=== PATIENT | male | born 1985 | race Caucasian/White ===

== ENCOUNTER 2020-08-11 02:26 | Emergency (ER) | payer MEDICAID ==
[~2020-08-11] VITALS: Ht 165.1 cm; Wt 131.0 kg
[2020-08-11] MEDS ORDERED: KETOROLAC 30MG/ML VIAL IV ONE (03:30)
[2020-08-11 03:43] LABS: BASOPHILS % 2.8 % (0.0-2.0); EOSINOPHILS % 4.3 % (0.0-5.0); HEMATOCRIT. 41.8 % (42.0-52.0); HEMOGLOBIN. 14.1 g/dL (14.0-18.0); LYMPHOCYTES % 37.9 % (20.0-50.0); MEAN CORPUSCULAR HEMOGLOBIN 28.6 pg (28.0-32.0); MEAN CORPUSCULAR VOLUME 84.6 fL (80.0-94.0); MEAN PLATELET VOLUME 7.8 fl (7.4-10.4); MONOCYTES % 10.1 % (2.0-8.0); NEUTROPHILS % 44.9 % (40.0-76.0); PLATELET 346 x1000/uL (130-400); RED BLOOD CELL COUNT 4.94 mill/uL (4.7-6.1); RED CELL DISTRIBUTION WIDTH 15.1 % (11.6-14.6)
[2020-08-11 03:53] LABS: CHLORIDE 105 mEq/L (98-107)
[2020-08-11] MEDS ORDERED: TOPUD PO (04:14)
[2020-08-11 04:49] VITALS: BP 139/97
== END 2020-08-11 04:53 | disposition home or self-care (01) ==
LOC: ER 02:26
DX: R07.89 Other chest pain (principal); Z98.890 Other specified postprocedural states
CPT/HCPCS: 36415; 71045; 80053; 83880; 84484; 85025; 93005; 99285

== ENCOUNTER 2020-11-27 04:34 | Inpatient (IN) | payer MEDICAID, OTHER ==
[~2020-11-27] VITALS: Ht 167.6 cm; Wt 128.4 kg
[~2020-11-27 04:34] MED LIST: TOPUD PO
[2020-11-27 05:22] LABS: BASOPHILS % 2.8 % (0.0-2.0); EOSINOPHILS % 5.1 % (0.0-5.0); HEMATOCRIT. 42.7 % (42.0-52.0); HEMOGLOBIN. 14.6 g/dL (14.0-18.0); MEAN CORPUSCULAR HEMOGLOBIN 29.1 pg (28.0-32.0); MEAN CORPUSCULAR VOLUME 85.1 fL (80.0-94.0); MEAN PLATELET VOLUME 7.6 fl (7.4-10.4); MONOCYTES % 10.1 % (2.0-8.0); PLATELET 354 x1000/uL (130-400); RED BLOOD CELL COUNT 5.02 mill/uL (4.7-6.1); RED CELL DISTRIBUTION WIDTH 15.2 % (11.6-14.6)
[2020-11-27 05:23] LABS: CHLORIDE 105 mEq/L (98-107)
[2020-11-27 05:31] LABS: LDL CHOLESTEROL 111 mg/dL (5-100)
[2020-11-27 05:32] LABS: HDL CHOLESTEROL 39 mg/dL (40-59)
[2020-11-27] MEDS ORDERED: ASPIRIN 325MG TABLET PO ONE (06:30)
[2020-11-27 07:52] LABS: *AMPHETAMINES SCREEN URINE NEGATIVE (NEGATIVE); *BARBITURATES SCREEN URINE NEGATIVE (NEGATIVE); *BENZODIAZEPINES SCREEN URINE NEGATIVE (NEGATIVE); *COCAINE SCREEN URINE NEGATIVE (NEGATIVE)
[2020-11-27 07:53] LABS: CANNABINOID URINE SCREEN NEGATIVE (NEGATIVE); METHADONE URINE SCREEN NEGATIVE (NEGATIVE); OPIATES URINE SCREEN NEGATIVE (NEGATIVE); PHENCYCLIDINE URINE SCREEN NEGATIVE (NEGATIVE)
[2020-11-27] MEDS ORDERED: ONDANSETRON HCL 4MG/2ML INJ IV PRN (08:45)
[2020-11-27] MEDS ORDERED: CLONIDINE 0.1MG TABLET PO PRN (08:45)
[2020-11-27] MEDS ORDERED: DIPHENHYDRAMINE 50MG/ML VIAL IV PRN (08:45)
[2020-11-27 15:56] VITALS: BP 133/87
[2020-11-27 16:00] VITALS: BP 127/92
[2020-11-27 20:00] VITALS: BP 127/86
[2020-11-28] VITALS: BP 132/79
[2020-11-28 04:00] VITALS: BP 121/70
[2020-11-28 06:19] LABS: BASOPHILS % 2.6 % (0.0-2.0); EOSINOPHILS % 4.8 % (0.0-5.0); HEMATOCRIT. 42.4 % (42.0-52.0); LYMPHOCYTES % 33.8 % (20.0-50.0); MEAN CORPUSCULAR HEMOGLOBIN 28.3 pg (28.0-32.0); MEAN CORPUSCULAR VOLUME 85.9 fL (80.0-94.0); MONOCYTES % 9.1 % (2.0-8.0); NEUTROPHILS % 49.7 % (40.0-76.0); PLATELET 349 x1000/uL (130-400); RED BLOOD CELL COUNT 4.94 mill/uL (4.7-6.1); RED CELL DISTRIBUTION WIDTH 15.3 % (11.6-14.6)
[2020-11-28 06:31] LABS: CHLORIDE 108 mEq/L (98-107)
[2020-11-28 06:40] LABS: LDL CHOLESTEROL 112 mg/dL (5-100)
[2020-11-28 06:41] LABS: HDL CHOLESTEROL 35 mg/dL (40-59)
[2020-11-28 08:00] VITALS: BP 122/78
[2020-11-28 14:41] VITALS: BP 131/82
== END 2020-11-28 15:10 | disposition home or self-care (01) | DRG 199 ==
LOC: ER 04:34 → MICUSO 06:37 → 7EST 13:24
PROVIDERS: ADMIT Internal Medicine; ATTEND Internal Medicine
DX: I10 Essential (primary) hypertension (principal); E66.9 Obesity, unspecified; R20.0 Anesthesia of skin; Z82.49 Family history of ischemic heart disease and other diseases of the circulatory system; Z83.3 Family history of diabetes mellitus; Z68.42 Body mass index [BMI] 45.0-49.9, adult
CPT/HCPCS: 36415; 70551; 71045; 80053; 80061; 80305; 85025; 93005; 93970; 99285

== ENCOUNTER 2021-08-17 16:58 | Emergency (ER) | payer MEDICAID, OTHER ==
[~2021-08-17] VITALS: Ht 165.1 cm; Wt 133.0 kg
[2021-08-18] MEDS ORDERED: IBUPROFEN 600MG TABLET PO ONE (00:30)
[2021-08-18] MEDS ORDERED: NIRM1TAB PO (00:54)
[2021-08-18] MEDS ORDERED: IBUP-2029 MT (00:54)
[2021-08-18 01:00] VITALS: BP 139/57
== END 2021-08-18 01:19 | disposition home or self-care (01) ==
LOC: ER 16:58
DX: U07.1 COVID-19 (principal); R53.83 Other fatigue; R00.0 Tachycardia, unspecified; R03.0 Elevated blood-pressure reading, without diagnosis of hypertension; R73.03 Prediabetes
CPT/HCPCS: 93005; 99283

== ENCOUNTER 2023-07-14 07:39 | Emergency (ER) | payer MEDICAID, OTHER ==
[~2023-07-14] VITALS: Ht 167.6 cm; Wt 131.1 kg
[~2023-07-14 07:39] MED LIST changes: +IBUP-2029 MT; +NIRM1TAB PO
[2023-07-14 08:05] VITALS: O2SAT 97
[2023-07-14] MEDS ORDERED: CYCL10TA21 MT (09:33)
[2023-07-14] MEDS ORDERED: DEX6 MT (09:33)
[2023-07-14 09:51] VITALS: BP 138/74; PULSE 74; RESP 18; TEMP 98.2
== END 2023-07-14 09:51 | disposition home or self-care (01) ==
LOC: ER 07:39
DX: M54.41 Lumbago with sciatica, right side (principal)
CPT/HCPCS: 99283

== ENCOUNTER 2024-12-04 21:37 | Emergency (ER) | payer MEDICAID ==
[~2024-12-04] VITALS: Ht 167.6 cm; Wt 130.0 kg
[~2024-12-04 21:37] MED LIST changes: +CYCL10TA21 MT; +DEX6 MT; +IBUP-1455 MT; -IBUP-2029 MT
[2024-12-04 21:45] VITALS: TEMP 36.9; O2SAT 96
[2024-12-04] MEDS: ACETAMINOPHEN 325MG TABLET PO ONE (23:11)
[2024-12-05 00:22] LABS: HEPATITIS A AB IGM NEGATIVE (Negative); HEPATITIS B CORE AB IGM NEGATIVE (Negative)
[2024-12-05 00:23] LABS: HEPATITIS C AB NON REACTIVE (Neg) (Negative)
[2024-12-05] MEDS ORDERED: BO1 TP (00:46)
[2024-12-05] MEDS ORDERED: ACET-3800 MT (00:46)
[2024-12-05] MEDS: TETANUS, DIPHTHERIA, PERTUSSIS VAC/PF 0.5ML (>10YR OLD) IM ONE (01:01)
[2024-12-05 01:04] VITALS: BP 174/106; PULSE 80; RESP 18; O2SAT 97
== END 2024-12-05 01:05 | disposition home or self-care (01) ==
LOC: ER 21:37
DX: S91.331A Puncture wound without foreign body, right foot, initial encounter (principal); Z79.899 Other long term (current) drug therapy; Z83.3 Family history of diabetes mellitus; W22.8XXA Striking against or struck by other objects, initial encounter; Y93.89 Activity, other specified; Y92.89 Other specified places as the place of occurrence of the external cause; Y99.9 Unspecified external cause status
CPT/HCPCS: 87340; 36415; 86705; 86709; 73630; 99284; 90715; 90471; Z7610